=== PATIENT | female | born 1980 | race Caucasian/White ===

== ENCOUNTER 2018-10-22 19:48 | Emergency (ER) | payer MEDICAID ==
[~2018-10-22] VITALS: Ht 167.6 cm; Wt 62.7 kg
[~2018-10-22 19:48] MED LIST: NITR0.4T32 SL; PHEN200C PO
[2018-10-22 20:08] VITALS: Ht 167.6 cm; Wt 62.7 kg
[2018-10-22] MEDS ORDERED: PHENYTOIN 100 MG CAP PO ONE (21:00)
[2018-10-22 21:22] VITALS: BP 115/72; PULSE 93; RESP 16
--- NOTE | 2018-10-22 23:14 | ERD ---
ER Documentation Chief Complaint Chief Complaint BIB RA for Med Refill HPI Patient is a 38-year-old female with a history of CHF and seizures who presents saying that she needs a refill of her Dilantin and nitroglycerin. She said that she had a seizure "right now". She says that she has had seizures for the past 2 years. Says that she takes Dilantin but has run out of her Dilantin. She takes 200 mg of Dilantin daily. She also is requesting a prescription for nitroglycerin for her CHF. Upon review of old medical records this is the patient's first visit to the emergency department. She says that she does have a primary doctor. ROS All systems reviewed and are negative except as per history of present illness. Medications Home Meds Active Scripts Nitroglycerin* (Nitroglycerin* SL) 0.4 Mg Tab.subl, 0.4 MG SL Q5MIN PRN for CHEST PAIN, #6 BOTTLE Prov:LUCA CAVANAUGH MD 10/22/18 Phenytoin* Sodium Extended (Dilantin*) 200 Mg Capsule, 200 MG PO HS for 14 Days, CAP Prov:LUCA CAVANAUGH MD 10/22/18 Allergies Allergies: Coded Allergies: Penicillins (Verified Allergy, Unknown, 10/22/18) Sulfa (Sulfonamide Antibiotics) (Verified Allergy, Unknown, 10/22/18) PMhx/Soc History of Surgery: No Anesthesia Reaction: No Hx Neurological Disorder: Yes (seizures) Hx Respiratory Disorders: No Hx Cardiac Disorders: No Hx Psychiatric Problems: No Hx Miscellaneous Medical Probl: No Smoking Status: Unknown if ever smoked FmHx Family History: No diabetes Physical Exam Vitals Vital Signs Date Temp Pulse Resp B/P (MAP) Pulse Ox O2 O2 Flow FiO2 Time Delivery Rate 10/22/18 98.6 93 16 115/72 98 Room Air 21:22 (86) 10/22/18 98.6 77 17 128/78 100 Room Air 21:03 (95) 10/22/18 98.6 80 17 128/78 100 20:08 (95) Physical Exam Const: No acute distress Head: Atraumatic Eyes: Normal Conjunctiva ENT: Normal External Ears, Nose and Mouth. Neck: Full range of motion. No meningismus. Resp: Clear to auscultation bilaterally Cardio: Regular rate and rhythm, no murmurs Abd: Soft, non tender, non distended. Normal bowel sounds Skin: No petechiae or rashes Back: No midline or flank tenderness Ext: No cyanosis, or edema Neur: Awake without signs of seizure activity Results 24 hrs Current Medications Medications Dose Sig/John Start Time Status Last (Trade) Ordered Route PRN Stop Time Admin Dose Reason Admin Phenytoin 500 mg ONCE ONCE 10/22/18 DC 10/22/18 (Dilantin) PO 21:00 10/22/18 21:00 21:01 Procedures/MDM Smoking Cessation Therapy: Pt. was lectured for greater than 3 minutes on the health risks of continued smoking and the benefits of cessation. Patient is a 38-year-old female with a history of CHF and seizures who presents with a complaint of seizure and need for medication refill. I am unclear as if she actually had a seizure here in the emergency department and no seizure was witnessed by myself or by our nursing staff. I will give her a loading dose of Dilantin 500 mg as she has not been taking her Dilantin. I will give her a two- week prescription for her Dilantin 200 mg daily and 6 tablet prescription for her nitroglycerin. She will need to follow-up with her primary doctor for any further prescriptions. Departure Diagnosis: Primary Impression: Seizure Additional Impression: Encounter for medication refill Condition: Fair Patient Instructions: Seizure, Recurrent [Adult] Referrals: Your doctor Additional Instructions: Call your primary care doctor TOMORROW for an appointment during the next 1 WEEK.Tell the community youth secretary that you were referred from this facility.See the doctor sooner or return here if your condition worsens before your appointment time. LUCA CAVANAUGH MD Oct 22, 2018 23:14
== END 2018-10-22 21:23 | disposition home or self-care (01) ==
LOC: E/R 19:48
DX: R56.9 Unspecified convulsions (principal)
CPT/HCPCS: Z7502; Z7610; 99283